=== PATIENT | female | born 1965 | race American Indian/Alaskan Native ===

== ENCOUNTER 2016-06-26 23:26 | Emergency (ER) | payer OTHER ==
[2016-06-27 00:23] VITALS: BP 104/66
[2016-06-27] MEDS ORDERED: FUL-GLO OP ONE (00:39)
[2016-06-27] MEDS ORDERED: TETRACAINE 0.5% OU PRN (00:39)
--- NOTE | 2016-06-27 01:24 | Emergency Department Report ---
[facility] Chief Complaint: Eye Problems Stated Complaint: PAIN RT EYE Duration: Today Side: Right Severity: mild Symptoms: Yes Eye Itching, Yes Eye Redness, Yes Purulent Drainage, No Eye Pain, No Mucous Drainage, No Blurred Vision, No Preceding URI, No H/O Allergic Rhinitis, No Contact Lens Use, No Trauma, No Fever, No Headache Other History: This is a 51-year-old female that presents with right eye redness with yellowish drainage started this morning. Patient denies any visual changes or blurry vision. Patient denies any pain. Patient denies any shortness of breath or chest pain, numbness or tingling, nausea vomiting. Patient does not sit or ill in appearance. No signs of distress noted. Denies fever. ED Review of Systems ROS: Stated complaint: PAIN RT EYE Other details as noted in HPI Constitutional: denies: chills, fever Eyes: eye discharge, other (crusting). denies: eye pain, vision change ENT: denies: ear pain, throat pain Respiratory: denies: cough, shortness of breath, wheezing Cardiovascular: denies: chest pain, palpitations Endocrine: no symptoms reported Gastrointestinal: denies: abdominal pain, nausea, diarrhea Genitourinary: denies: urgency, dysuria, discharge Musculoskeletal: denies: back pain, joint swelling, arthralgia Skin: denies: rash, lesions Neurological: denies: headache, weakness, paresthesias Psychiatric: denies: anxiety, depression Hematological/Lymphatic: denies: easy bleeding, easy bruising ED Past Medical Hx - Past Medical History Previous Medical History?: No - Surgical History Additional Surgical History: D&C, Right lumpectomy - Social History Smoking Status: Never Smoker Substance Use Type: None - Medications Home Medications: Home Medications Medication Instructions Recorded Confirmed Last Taken Type Polymyxin B Sulf/Trimethoprim 1 drop OP QID #1 drops 06/27/16 Unknown Rx [Polytrim Eye Drops 49799arzmg/0.1%] [facility] Exam - Exam General: Vital signs noted. No distress. Alert and acting appropriately. GENERAL: The patient is a well-developed, well-nourished male in no apparent distress. Patient is alert and oriented x3. VITAL SIGNS: Stable HEENT: Head is normocephalic and atraumatic. Extraocular muscles are intact. Pupils are equal, round, and reactive to light and accommodation. Nares appeared normal. Mouth is well hydrated and without lesions. Mucous membranes are moist. Posterior pharynx clear of any exudate or lesions. Left sclera erythema with crusting and purulent drainage. NECK: Supple. No carotid bruits. No lymphadenopathy or thyromegaly. LUNGS: Clear to auscultation. HEART: Regular rate and rhythm without murmur. ABDOMEN: Soft, nontender, and nondistended. Positive bowel sounds. No hepatosplenomegaly was noted. EXTREMITIES: Without any cyanosis, clubbing, rash, lesions or edema. NEUROLOGIC: Cranial nerves II through XII are grossly intact. PSYCHIATRIC: Flat affect, but denies suicidal or homicidal ideations. SKIN: No ulceration or induration present. Eye Exam: Left Mucous Discharge, Left Purulent Discharge, Neither Injection, Neither Chemosis, Neither Abnormal Pupil, Neither EOMI, Neither Eye Foreign Body , Neither Lid Foreign Body, Neither Fluorescein Uptake, Neither Fluorescein Uptake (slit lamp), Neither Cell/Flare (slit lamp), Neither Corneal Edema, Neither Photophobia HEENT: No Nasal Congestion, No Pharyngeal Erythema Remainder of HEENT: Normal Lungs: Yes Clear Lung Sounds, Yes Good Air Exchange, No Wheezes, No Stridor, No Cough, No Nasal Flaring, No Retractions, No Use of Accessory Muscles Exam: Under Wood's lamp, I have evaluated patient for corneal abrasion with 0.5 % tetracaine and fluoroscen. Negative left eye corneal abrasion noticed. ED Course Vital Signs 06/27/16 00:14 Temperature 98.1 F Pulse Rate 72 Respiratory 18 Rate Blood Pressure 104/66 Blood Pressure 104/66 [Left] O2 Sat by Pulse 99 Oximetry ED Medical Decision Making - Medical Decision Making ED course: 51-year-old female that presents with left eye conjunctivitis 1- under Valente lamp, no evidence of corneal abrasion noticed left eye. 2- I instructed the patient to wash hands with soap and water after contact of left eye due to highly contagious. 3- patient received Polytrim at the time of discharge. 4- at the time of discharge the patient does not seem toxic or ill in appearance. No signs of any distress noted. Patient recently discharged treatment plan. No further questions noted by the patient. Critical care attestation.: If time is entered above; I have spent that time in minutes in the direct care of this critically ill patient, excluding procedure time. ED Disposition Clinical Impression: Conjunctivitis, left eye Qualifiers: Conjunctivitis type: unspecified Qualified Code(s): H10.9 - Unspecified conjunctivitis Disposition: DISCHARGED TO HOME OR SELFCARE Is pt being admited?: No Does the pt Need Aspirin: No Condition: Stable Instructions: Conjunctivitis (ED) Additional Instructions: Please apply Polytrim to left eye as prescribed. (4 times daily for 7 days) If symptoms worsen please follow-up with department care doctor/return to ED. Prescriptions: Polymyxin B Sulf/Trimethoprim [Polytrim Eye Drops 43514lbjbs/0.1%] 1 drop OP QID #1 drops Referrals: SILVANA MINOR MD [Referring] - 3-5 Days BARBIE MAIER MD [Referring] - 3-5 Days MARY LAZAR MD [Referring] - 3-5 Days Forms: Work/School Release Form(ED)
== END 2016-06-27 02:05 | disposition home or self-care (01) ==
LOC: ED 23:26
DX: H10.9 Unspecified conjunctivitis (principal); Z90.89 Acquired absence of other organs
CPT/HCPCS: 99282